=== PATIENT | female | born 1935 | race Caucasian/White ===

== ENCOUNTER 2018-03-26 21:39 | Emergency (ER) | payer MEDICARE ==
[~2018-03-26] VITALS: Ht 160 cm; Wt 46.0 kg
[~2018-03-26 21:39] MED LIST: ACYCLOVIR800 MG PO; LEVOTHYROXIN88 MCG PO; LORTAB 7.57.5 MG PO; LORTAB5 PO; Levaquin OR; PROMETHAZINE25 M1 XX
[2018-03-27] MEDS ORDERED: ORPHENADRINE100 MG PO (01:55)
[2018-03-27] MEDS ORDERED: IBUPROFEN600 MG PO (01:55)
[2018-03-27 02:00] VITALS: BP 130/70
== END 2018-03-27 02:10 | disposition home or self-care (01) ==
LOC: ED 21:39
DX: M54.6 Pain in thoracic spine (principal)

== ENCOUNTER 2018-04-19 08:05 | Emergency (ER) | payer MEDICARE ==
[~2018-04-19] VITALS: Ht 160 cm; Wt 52.3 kg
[~2018-04-19 08:05] MED LIST changes: +IBUPROFEN600 MG PO; +ORPHENADRINE100 MG PO
[2018-04-19] MEDS ORDERED: TIZANIDINE HCL2 M1 PO (08:39)
[2018-04-19] MEDS ORDERED: PREDNISONE20 MG PO (08:39)
[2018-04-19] MEDS ORDERED: VOLTAREN1%GEL TOP ×2 (08:50→10:16)
[2018-04-19] MEDS ORDERED: LIDOCAINE HCL VIS2 % TOP (08:50)
[2018-04-19 09:30] VITALS: BP 175/72
[2018-04-19] MEDS ORDERED: LIDOCAINE5 % TOP ×2 (09:43→10:16)
[2018-04-19] MEDS ORDERED: PROTONIX40 M2 PO ×2 (10:15→10:16)
== END 2018-04-19 09:35 | disposition home or self-care (01) ==
LOC: ED 08:05
DX: M54.6 Pain in thoracic spine (principal); M54.5 Low back pain

== ENCOUNTER 2018-04-21 13:05 | Observation (INO) | payer MEDICARE ==
[~2018-04-21] VITALS: Ht 157.5 cm; Wt 47.0 kg
[~2018-04-21 13:05] MED LIST changes: +LIDOCAINE HCL VIS2 % TOP; +LIDOCAINE5 % TOP; +PREDNISONE20 MG PO; +PROTONIX40 M2 PO; +TIZANIDINE HCL2 M1 PO; +VOLTAREN1%GEL TOP
[2018-04-21 13:42] LABS: HEMATOCRIT 38.3 % (37.0-47.0); HEMOGLOBIN 12.7 g/dl (12.0-16.0); IMMATURE GRANULOCYTES 0.5 % (0.0-5.0); MEAN CELL VOLUME 99.7 fL CALC (80.0-100.0); MEAN CORPUSCULAR HGB 33.1 pG CALC (26.0-32.0); MEAN CORPUSCULAR HGB CONC 33.2 g/L CALC (32.0-36.0); NEUT# 5.28 thou/uL (2.00-7.15); RED BLOOD COUNT 3.84 mill/uL (4.20-5.60); RED CELL DISTRI WIDTH 11.9 % (11.5-15.5)
[2018-04-21 14:01] LABS: ALKALINE PHOSPHATASE 54 u/l (38-126); ANION GAP 16 (6-22 (CALC)); BILIRUBIN, TOTAL 0.3 mg/dL (0.0-1.4); BUN 33 mg/dL (8-23); BUN/CREATININE RATIO 38 (12-20 (CALC)); CARBON DIOXIDE 24 mmol/l (22-30); CHLORIDE 105 mmol/l (95-108); CREATININE 0.9 mg/dL (0.5-1.0); GFR 60 ML/MIN (>=60 (CALC)); GFR FOR AFR.AMER. > 60 ML/MIN (>=60 (CALC)); POTASSIUM 4.4 mmol/l (3.5-5.1); SGOT/AST 25 u/l (9-36); SODIUM 142 mmol/l (137-146); TOTAL PROTEIN 7.2 g/dL (6.3-8.2)
[2018-04-21 14:02] LABS: ALBUMIN 4.1 g/dL (3.2-5.0)
[2018-04-21 16:05] VITALS: BP 161/77
[2018-04-21 19:20] VITALS: BP 128/64
[2018-04-21 19:29] LABS: URINE BILIRUBIN - DIPSTICK NEGATIVE (NEGATIVE); URINE BLOOD DIPSTICK SMALL (NEGATIVE); URINE COLOR YELLOW; URINE GLUCOSE - DIPSTICK NEGATIVE (NEGATIVE); URINE KETONE NEGATIVE (NEGATIVE); URINE LEUK ESTERASE NEGATIVE (Negative); URINE NITRITE - DIPSTICK NEGATIVE (Negative); URINE PROTEIN - DIPSTICK NEGATIVE (NEG-TRACE); URINE SPECIFIC GRAVITY 1.025; URINE UROBILINOGEN - DIPSTICK 0.2 E.U./dL (0.2)
[2018-04-21 19:30] LABS: URINE CLARITY CLEAR
[2018-04-21 19:37] LABS: URINE SQUAMOUS EPITHELIAL CELL FEW EPI/hpf (0-FEW); URINE WBC 0-2 WBC/hpf (0-5)
[2018-04-21 23:38] VITALS: BP 114/69
[2018-04-22 04:05] VITALS: BP 132/78
[2018-04-22 05:50] LABS: HEMATOCRIT 35.7 % (37.0-47.0); IMMATURE GRANULOCYTES 0.4 % (0.0-5.0); MEAN CORPUSCULAR HGB 33.6 pG CALC (26.0-32.0); MEAN CORPUSCULAR HGB CONC 33.6 g/L CALC (32.0-36.0); NEUT# 3.67 thou/uL (2.00-7.15); RED BLOOD COUNT 3.57 mill/uL (4.20-5.60); RED CELL DISTRI WIDTH 11.9 % (11.5-15.5)
[2018-04-22 05:58] LABS: ALBUMIN 3.3 g/dL (3.2-5.0); ALKALINE PHOSPHATASE 44 u/l (38-126); AMYLASE 58 u/l (30-110); ANION GAP 12 (6-22 (CALC)); BILIRUBIN, TOTAL 0.3 mg/dL (0.0-1.4); BUN 26 mg/dL (8-23); BUN/CREATININE RATIO 30 (12-20 (CALC)); CALCULATED LDLCHOLESTEROL 83 mg/dL (62-129 (CALC)); CARBON DIOXIDE 25 mmol/l (22-30); CHLORIDE 110 mmol/l (95-108); CHOLESTEROL HDL RATIO 2.5 (<4.4 (CALC)); CREATININE 0.9 mg/dL (0.5-1.0); GFR 60 ML/MIN (>=60 (CALC)); GFR FOR AFR.AMER. > 60 ML/MIN (>=60 (CALC)); HDL CHOLESTEROL 73 mg/dL (>=40); LIPASE 50 u/l (23-300); MAGNESIUM 2.1 mg/dL (1.6-2.3); POTASSIUM 3.7 mmol/l (3.5-5.1); SGOT/AST 17 u/l (9-36); SODIUM 143 mmol/l (137-146); TOTAL CHOLESTEROL 181 mg/dl (0-199); TOTAL TRIGLYCERIDES 126 mg/dl (30-149); VLDL CHOLESTROL 25 mg/dl (0-48 (CALC))
[2018-04-22 06:28] LABS: TSH, 3RD GENERATION 5.51 uIU/mL (0.47 - 4.68)
[2018-04-22 07:59] VITALS: BP 126/87
[2018-04-22 11:14] VITALS: BP 118/60
[2018-04-22] MEDS ORDERED: LOSARTAN POTASS25 MG PO (14:59)
[2018-04-22] MEDS ORDERED: MIRTAZAPINE15 MG PO (14:59)
[2018-04-22] MEDS ORDERED: TRAMADOL HCL50 MG PO (15:49)
== END 2018-04-22 15:54 | disposition home or self-care (01) ==
LOC: ED 13:05 → ED-I 13:10 → ED 13:10 → ED-I 14:09 → ED 15:10 → MS2 15:11
PROVIDERS: Family Medicine; ADMIT Internal Medicine Nephrology; ATTEND Internal Medicine Nephrology
DX: R07.89 Other chest pain (principal); M48.54XA Collapsed vertebra, not elsewhere classified, thoracic region, initial encounter for fracture; F41.8 Other specified anxiety disorders; R16.0 Hepatomegaly, not elsewhere classified; K21.9 Gastro-esophageal reflux disease without esophagitis; E03.9 Hypothyroidism, unspecified; Z79.1 Long term (current) use of non-steroidal anti-inflammatories (NSAID); Z79.52 Long term (current) use of systemic steroids
CPT/HCPCS: J1650; J2060

== ENCOUNTER → 2018-05-14 | Outpatient (REF) | payer MEDICARE ==
[~2018-05-14] MED LIST changes: +LOSARTAN POT25 MG PO; +LOSARTAN POTASS25 MG PO; +MIRTAZAPINE15 MG PO; +ONDANSETRON HCL4 MG PO; +PANTOPRAZOLE SO40 M1 PO; +RESTORIL15 MG PO; +TRAMADOL HCL50 MG PO
[2018-05-14 15:55] LABS: HEMATOCRIT 32.8 % (37.0-47.0); IMMATURE GRANULOCYTES 0.4 % (0.0-5.0); MEAN CELL VOLUME 100.3 fL CALC (80.0-100.0); MEAN CORPUSCULAR HGB 33.6 pG CALC (26.0-32.0); MEAN CORPUSCULAR HGB CONC 33.5 g/L CALC (32.0-36.0); NEUT# 4.26 thou/uL (2.00-7.15); RED BLOOD COUNT 3.27 mill/uL (4.20-5.60); RED CELL DISTRI WIDTH 11.5 % (11.5-15.5)
[2018-05-14 16:13] LABS: CREATININE 1.8 mg/dL (0.5-1.0); POTASSIUM 4.4 mmol/l (3.5-5.1)
[2018-05-14 16:14] LABS: BILIRUBIN, TOTAL 0.3 mg/dL (0.0-1.4)
[2018-05-14 16:22] LABS: ALBUMIN 4.2 g/dL (3.2-5.0); TOTAL PROTEIN 7.5 g/dL (6.3-8.2)
[2018-05-14 16:25] LABS: URINE BILIRUBIN - DIPSTICK NEGATIVE (NEGATIVE); URINE BLOOD DIPSTICK MODERATE (NEGATIVE); URINE COLOR YELLOW; URINE GLUCOSE - DIPSTICK NEGATIVE (NEGATIVE); URINE KETONE NEGATIVE (NEGATIVE); URINE LEUK ESTERASE SMALL (Negative); URINE NITRITE - DIPSTICK NEGATIVE (Negative); URINE PH 5.5 (4.5-8.0); URINE PROTEIN - DIPSTICK 30 mg/dL (NEG-TRACE); URINE SPECIFIC GRAVITY 1.025; URINE UROBILINOGEN - DIPSTICK 0.2 E.U./dL (0.2)
[2018-05-14 16:29] LABS: URINE CLARITY CLEAR
[2018-05-14 16:36] LABS: URINE SQUAMOUS EPITHELIAL CELL FEW EPI/hpf (0-FEW)
== END | disposition home or self-care (01) ==
LOC: ULTRASND 14:00
PROVIDERS: ATTEND Internal Medicine
DX: R10.13 Epigastric pain (principal); B96.5 Pseudomonas (aeruginosa) (mallei) (pseudomallei) as the cause of diseases classified elsewhere

== ENCOUNTER → 2018-05-15 | Outpatient (REF) | payer MEDICARE | END | disposition home or self-care (01) | LOC: ULTRASND 07:35 | PROVIDERS: ATTEND Internal Medicine | DX: R10.13 Epigastric pain (principal); R16.0 Hepatomegaly, not elsewhere classified ==

== ENCOUNTER → 2018-06-01 | Outpatient (REF) | payer MEDICARE ==
[2018-06-01 15:33] LABS: CREATININE 2.4 mg/dL (0.5-1.0); POTASSIUM 4.9 mmol/l (3.5-5.1)
== END | disposition home or self-care (01) ==
LOC: LAB 14:46
PROVIDERS: ATTEND Internal Medicine
DX: N28.9 Disorder of kidney and ureter, unspecified (principal)

== ENCOUNTER 2018-06-05 13:53 | Outpatient (REF) | payer MEDICARE ==
[~2018-06-05] VITALS: Ht 160 cm; Wt 46.3 kg
[~2018-06-05 13:53] MED LIST changes: -LOSARTAN POT25 MG PO; -ONDANSETRON HCL4 MG PO; -PANTOPRAZOLE SO40 M1 PO; -RESTORIL15 MG PO
== END 2018-06-05 14:30 | disposition home or self-care (01) ==
LOC: INF 13:53
PROVIDERS: ATTEND Internal Medicine
DX: M80.00XG Age-related osteoporosis with current pathological fracture, unspecified site, subsequent encounter for fracture with delayed healing (principal)
CPT/HCPCS: J0897

== ENCOUNTER 2018-06-15 17:34 | Inpatient (IN) | payer MEDICARE ==
[~2018-06-15] VITALS: Ht 157.5 cm; Wt 45.4 kg
[~2018-06-15 17:34] MED LIST changes: -LOSARTAN POT25 MG PO; -ONDANSETRON HCL4 MG PO; -PANTOPRAZOLE SO40 M1 PO; -RESTORIL15 MG PO
[2018-06-15 18:04] VITALS: BP 148/86
[2018-06-15 21:12] LABS: URINE BILIRUBIN - DIPSTICK NEGATIVE (NEGATIVE); URINE BLOOD DIPSTICK MODERATE (NEGATIVE); URINE COLOR YELLOW; URINE GLUCOSE - DIPSTICK NEGATIVE (NEGATIVE); URINE KETONE NEGATIVE (NEGATIVE); URINE LEUK ESTERASE TRACE (NEGATIVE); URINE NITRITE - DIPSTICK NEGATIVE (Negative); URINE PH 6.5 (4.5-8.0); URINE PROTEIN - DIPSTICK TRACE mg/dL (NEG-TRACE); URINE SPECIFIC GRAVITY <=1.005; URINE UROBILINOGEN - DIPSTICK 0.2 E.U./dL (0.2)
[2018-06-15 21:20] LABS: URINE SQUAMOUS EPITHELIAL CELL FEW EPI/hpf (0-FEW); URINE WBC 0-2 WBC/hpf (0-5)
[2018-06-15 23:56] VITALS: BP 118/61
[2018-06-16 04:16] VITALS: BP 116/72
[2018-06-16 06:12] LABS: ALBUMIN 3.6 g/dL (3.2-5.0); BILIRUBIN, TOTAL 0.3 mg/dL (0.0-1.4); CREATININE 2.5 mg/dL (0.5-1.0); TOTAL PROTEIN 6.7 g/dL (6.3-8.2)
[2018-06-16 08:37] VITALS: BP 130/60
[2018-06-16] MEDS ORDERED: LOSARTAN POT25 MG PO (11:00)
[2018-06-16] MEDS ORDERED: ONDANSETRON HCL4 MG PO (11:01)
[2018-06-16] MEDS ORDERED: TIZANIDINE HCL2 M1 PO (11:02)
[2018-06-16 11:15] VITALS: BP 140/65
[2018-06-16 15:55] VITALS: BP 138/71
[2018-06-16 19:40] VITALS: BP 110/58
[2018-06-17] VITALS (7 sets, daily range): BP systolic 118–151; BP diastolic 61–77
[2018-06-17 05:08] LABS: HEMATOCRIT 31.3 % (37.0-47.0); HEMOGLOBIN 9.6 g/dl (12.0-16.0); IMMATURE GRANULOCYTES 0.3 % (0.0-5.0); MEAN CELL VOLUME 104.7 fL CALC (80.0-100.0); MEAN CORPUSCULAR HGB 32.1 pG CALC (26.0-32.0); MEAN CORPUSCULAR HGB CONC 30.7 g/L CALC (32.0-36.0); NEUT# 4.03 thou/uL (2.00-7.15); RED BLOOD COUNT 2.99 mill/uL (4.20-5.60); RED CELL DISTRI WIDTH 12.1 % (11.5-15.5)
[2018-06-17 05:23] LABS: ALBUMIN 3.9 g/dL (3.2-5.0); BILIRUBIN, TOTAL 0.5 mg/dL (0.0-1.4); CREATININE 2.2 mg/dL (0.5-1.0); MAGNESIUM 2.3 mg/dL (1.6-2.3); POTASSIUM 4.7 mmol/l (3.5-5.1); TOTAL PROTEIN 7.4 g/dL (6.3-8.2)
[2018-06-18 04:11] VITALS: BP 161/77
[2018-06-18 05:26] LABS: HEMATOCRIT 30.5 % (37.0-47.0); IMMATURE GRANULOCYTES 0.4 % (0.0-5.0); MEAN CELL VOLUME 99.7 fL CALC (80.0-100.0); MEAN CORPUSCULAR HGB 32.7 pG CALC (26.0-32.0); MEAN CORPUSCULAR HGB CONC 32.8 g/L CALC (32.0-36.0); NEUT# 5.82 thou/uL (2.00-7.15); RED BLOOD COUNT 3.06 mill/uL (4.20-5.60); RED CELL DISTRI WIDTH 12.1 % (11.5-15.5)
[2018-06-18 05:51] LABS: ALBUMIN 3.5 g/dL (3.2-5.0); BILIRUBIN, TOTAL 0.4 mg/dL (0.0-1.4); CREATININE 2.4 mg/dL (0.5-1.0); MAGNESIUM 2.1 mg/dL (1.6-2.3); POTASSIUM 4.8 mmol/l (3.5-5.1); TOTAL PROTEIN 6.3 g/dL (6.3-8.2)
[2018-06-18 08:41] VITALS: BP 143/71
[2018-06-18 11:16] VITALS: BP 130/72
[2018-06-18] MEDS ORDERED: MIRTAZAPINE15 MG PO (14:12)
[2018-06-18] MEDS ORDERED: RESTORIL15 MG PO (14:13)
[2018-06-18] MEDS ORDERED: PANTOPRAZOLE SO40 M1 PO (14:13)
== END 2018-06-18 14:40 | disposition home or self-care (01) | DRG 683 ==
LOC: MS2 17:34
PROVIDERS: ADMIT Internal Medicine Nephrology; ATTEND Internal Medicine Nephrology
DX: N17.9 Acute kidney failure, unspecified (principal); E87.2 Acidosis; E87.0 Hyperosmolality and hypernatremia; T39.315A Adverse effect of propionic acid derivatives, initial encounter; T46.5X5A Adverse effect of other antihypertensive drugs, initial encounter; I12.9 Hypertensive chronic kidney disease with stage 1 through stage 4 chronic kidney disease, or unspecified chronic kidney disease; N18.3 Chronic kidney disease, stage 3 (moderate); E03.9 Hypothyroidism, unspecified; D18.03 Hemangioma of intra-abdominal structures; K59.00 Constipation, unspecified; R31.9 Hematuria, unspecified; E86.0 Dehydration; E86.9 Volume depletion, unspecified; D64.9 Anemia, unspecified; F41.8 Other specified anxiety disorders; G58.8 Other specified mononeuropathies; M54.9 Dorsalgia, unspecified; M81.0 Age-related osteoporosis without current pathological fracture; K21.9 Gastro-esophageal reflux disease without esophagitis; Z63.4 Disappearance and death of family member; Z87.310 Personal history of (healed) osteoporosis fracture; R11.0 Nausea; R53.83 Other fatigue
CPT/HCPCS: G0378; G0379; J1650

== ENCOUNTER → 2018-06-15 | Outpatient (REF) | payer MEDICARE ==
[~2018-06-15] MED LIST changes: +LOSARTAN POT25 MG PO; +ONDANSETRON HCL4 MG PO; +PANTOPRAZOLE SO40 M1 PO; +RESTORIL15 MG PO
[2018-06-15 09:29] LABS: HEMATOCRIT 32.2 % (37.0-47.0); HEMOGLOBIN 10.4 g/dl (12.0-16.0); IMMATURE GRANULOCYTES 0.3 % (0.0-5.0); MEAN CELL VOLUME 99.7 fL CALC (80.0-100.0); MEAN CORPUSCULAR HGB 32.2 pG CALC (26.0-32.0); MEAN CORPUSCULAR HGB CONC 32.3 g/L CALC (32.0-36.0); NEUT# 5.4 thou/uL (2.00-7.15); RED BLOOD COUNT 3.23 mill/uL (4.20-5.60); RED CELL DISTRI WIDTH 11.9 % (11.5-15.5)
[2018-06-15 10:02] LABS: ALBUMIN 4.5 g/dL (3.2-5.0); BILIRUBIN, TOTAL 0.4 mg/dL (0.0-1.4); CREATININE 2.5 mg/dL (0.5-1.0); POTASSIUM 4.2 mmol/l (3.5-5.1)
== END | disposition home or self-care (01) ==
LOC: LAB 09:07
PROVIDERS: ATTEND Internal Medicine
DX: N17.9 Acute kidney failure, unspecified (principal); R11.0 Nausea; R53.83 Other fatigue